=== PATIENT | male | born 1990 | race Caucasian/White ===

== ENCOUNTER 2017-07-04 20:47 | Emergency (ER) | payer OTHER ==
[2017-07-04] MEDS ORDERED: IBUPROFEN 800 MG TABLET PO ONE (22:50)
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
--- NOTE | 2017-07-04 23:57 | RADIOLOGY REPORT (SQ) ---
EXAM DESCRIPTION: RIBS RIGHT W/PA CHEST CLINICAL HISTORY: 26 years, Male, States he is having pain in the right lower ribs COMPARISON: None. NUMBER OF VIEWS: 3 FINDINGS: BB metallic opacity overlies the right mid-lower chest. Normal cardiac silhouette, normal lung volume, clear parenchyma. IMPRESSION: No acute cardiopulmonary findings.
[2017-07-05 00:16] VITALS: BP 122/63
== END 2017-07-05 00:17 | disposition home or self-care (01) ==
LOC: ER 20:47
DX: S20.211A Contusion of right front wall of thorax, initial encounter (principal); R07.81 Pleurodynia; W50.0XXA Accidental hit or strike by another person, initial encounter; F17.210 Nicotine dependence, cigarettes, uncomplicated; Z71.6 Tobacco abuse counseling
CPT/HCPCS: 99283; 99406